=== PATIENT | female | born 1995 | race Caucasian/White ===

== ENCOUNTER 2024-02-01 08:50 | Observation (INO) | payer MEDICAID, SELFPAY ==
[2024-02-01] VITALS (10 sets, daily range): BP systolic 106–155; BP diastolic 63–111; PULSE 78–104; RESP 16–18; TEMP 36.7–36.9; O2SAT 93–99; BMI 25.7
--- NOTE | 2024-02-01 09:13 | PC.NURSE ---
ER AT BEDSIDE
--- NOTE | 2024-02-01 09:14 | HMH.EDGENADL ---
Discharge Plan Disposition Chief Complaint: Abdominal Pain Clinical Impressions Clinical Impression: , Abdominal pain, RLQ, Hematuria Print Language Print Language: Liberian Discharge ED Provider: Aj Polanco General Adult HPI General Chief complaint: Abdominal Pain Stated complaint: right abd pain Time Seen by Provider: 02/01/24 09:00 Mode of Arrival: Ambulatory Source of Information: Patient Limitations: No Limitations Description of Symptoms (Recalled from ER Triage Doc. by RN): pt presents to ED with c/o lower abdominal pain. located on the right side radiating from center of lower abdomen into her back. pt reports symptoms began this am approx 0530. pt reports pain constant , rating 9/10, feels stabbing in nature. History of Present Illness HPI narrative: Patient is 28-year-old female with no pertinent past medical history presents emergency department for evaluation of right lower quadrant abdominal pain. Onset was acute, since 530 this morning, no associated vomiting or cough, severe in intensity, nonmodifiable, no vaginal bleeding or discharge, her menstrual period is approximately 2 weeks late however has been irregular recently. No dysuria. No other acute complaints at this time. Related Data Allergies Allergy/AdvReac Type Severity Reaction Status Date / Time clindamycin Allergy Nausea Verified 02/01/24 09:09 [facility] Disclaimer: The information contained in this section may have been updated after the patient was seen, as this information can be updated by other users. Social History Smoking Status: Never smoker alcohol intake: never current occupational status: other Travel in the last 8 weeks: None ROS Obtained: Yes Systems reviewed as appropriate & no additional complaints except as documented Physical Exam General General appearance: alert and in distress Head Head exam: atraumatic and normocephalic Eye Eye exam: Present PERRL and EOMI ENT ENT exam: Present mucous membranes moist Neck Neck exam: Present normal inspection Chest Chest inspection: Present normal inspection and symmetric chest wall rise Respiratory Respiratory exam: Present normal lung sounds bilaterally; Absent respiratory distress Cardiovascular Cardiovascular exam: Present regular rate and normal rhythm Abdominal Exam Abdominal exam: Present soft, tenderness (Mild, right lower quadrant), guarding and other (Right-sided CVA tenderness) Extremities Exam Extremities exam: Present normal inspection Neurological Exam Neurological exam: Present alert Psychiatric Psychiatric exam: Present normal affect Skin Skin exam: Present warm and dry Medical Decision Making Medical Records Screening: Per USPSTF and CDC recommendations, given the prevalence of disease in our region, it is our hospital?s policy to screen for HIV and viral Hepatitis for all patients aged 18 and over and those with ongoing risk factors. Remy Inquiry Pt receiving controlled substance: No Vital Signs: 02/01/24 08:52 02/01/24 08:57 02/01/24 09:00 Temperature 98.5 F Temperature Source Oral Pulse Rate 103 H 104 H Pulse Rate [Left Radial] 101 H Respiratory Rate 16 Blood Pressure 155/100 H 106/86 L Blood Pressure [Right Arm] 106/86 L Blood Pressure Mean [Right Arm] 92 02 Sat by Pulse Oximetry 99 97 93 L Oxygen Delivery Method Room Air Room Air Room Air 02/01/24 09:06 02/01/24 09:30 02/01/24 10:00 Temperature Temperature Source Pulse Rate 78 91 H 87 Pulse Rate [Left Radial] Respiratory Rate Blood Pressure 116/82 133/63 111/75 Blood Pressure [Right Arm] Blood Pressure Mean [Right Arm] 02 Sat by Pulse Oximetry 98 98 97 Oxygen Delivery Method Room Air 02/01/24 10:27 02/01/24 11:31 Temperature Temperature Source Pulse Rate 84 97 H Pulse Rate [Left Radial] Respiratory Rate Blood Pressure 145/111 H 145/103 H Blood Pressure [Right Arm] Blood Pressure Mean [Right Arm] 02 Sat by Pulse Oximetry 98 96 Oxygen Delivery Method Room Air Lab Data Lab Results 02/01/24 08:55: Urine Color Yellow, Urine Appearance Clear, Urine pH 6.0, Ur Specific [place] >= 1.030, Urine Protein Negative, Urine Glucose (UA) Negative, Urine Ketones Negative, Urine Blood 2+ A, Urine Nitrate Negative, Urine Bilirubin Negative, Urine Urobilinogen 0.2, Ur Leukocyte Esterase Negative, Urine RBC 5-10, Urine WBC Occasional, Ur Squamous Epith Cells 5-10, Urine Bacteria Trace 02/01/24 09:00: WBC 11.6 H, RBC 4.77, Hgb 14.5, Hct 40.7, MCV 85.3, MCH 30.4, MCHC 35.6 H, RDW 13.9, Plt Count 355, MPV 7.8, Neut % (Auto) 65.7, Lymph % (Auto) 27.3, [place] % (Auto) 4.8, Eos % (Auto) 1.6, Baso % (Auto) 0.6, Neut # (Auto) 7.6, Lymph # (Auto) 3.2, [place] # (Auto) 0.6, Eos # (Auto) 0.2, Baso # (Auto) 0.1, Sodium 134 L, Potassium 3.9, Chloride 101, Carbon Dioxide 22, Anion Gap 14.9, BUN 10, Creatinine 0.60, Estimated Creat Clear 149, Estimated GFR 118, Est GFR ( Amer) 143, Glucose 102 H, Calcium 9.6, Total Bilirubin 0.7, AST 32, ALT 41, Alkaline Phosphatase 51, Total Protein 7.4, Albumin 4.4, Globulin 3.0, Albumin/Globulin Ratio 1.5, Lipase 97, Serum HCG, Qual Positive, HCG, Quant 24931 H, HIV 1&2 Antibody Rapid Nonreactive 02/01/24 09:00 02/01/24 09:00 Orders (Tests/Meds): ED MEDICATIONS Generic Name Dose Route Start Last Admin Trade Name Freq PRN Reason Stop Dose Admin Sodium Chloride 10 ml 02/01/24 09:10 Sodium Chloride 0.9% 10ml Flush Syringe IV 03/02/24 09:09 NEEDED PRN Maintain IV Site Discontinued Medications Generic Name Dose Route Start Last Admin Trade Name Freq PRN Reason Stop Dose Admin Acetaminophen 1,000 mg 02/01/24 09:11 02/01/24 09:15 Acetaminophen 1,000mg/100ml Vial IV 02/01/24 09:12 1,000 mg ONCE ONE Administration Lactated Ringer's 1,000 mls @ 999 mls/hr 02/01/24 09:11 02/01/24 09:16 Lactated Ringer's 1000 Ml Bag IV 02/01/24 10:11 999 mls/hr .Q1H1M ONE Administration Ketorolac Tromethamine 15 mg 02/01/24 09:11 02/01/24 09:37 Ketorolac 30mg/Ml Vial IV 02/01/24 09:12 Not Given ONCE ONE Morphine Sulfate 4 mg 02/01/24 09:11 02/01/24 09:16 Morphine 4mg/Ml Syringe IV 02/01/24 09:12 4 mg ONCE ONE Administration Morphine Sulfate 4 mg 02/01/24 11:40 02/01/24 11:47 Morphine 4mg/Ml Syringe IV 02/01/24 11:41 4 mg ONCE ONE Administration Ondansetron HCl 4 mg 02/01/24 09:11 02/01/24 09:15 Ondansetron 4mg/2ml Vial IV 02/01/24 09:12 4 mg ONCE ONE Administration ORDERS Category Date Time Status CBC w/Auto Diff [Complete Blood Count Auto Diff] Stat Lab 02/01/24 09:00 Completed CMP [Comprehensive Metabolic Panel] Stat Lab 02/01/24 09:00 Completed HCG Qualitative, Serum Stat Lab 02/01/24 09:00 Completed HCG,Quantitative Stat Lab 02/01/24 09:00 Completed HIV (1&2) Antibody Rapid Routine Lab 02/01/24 09:00 Completed Hep C Ab with Reflex to RNA Stat Lab 02/01/24 09:00 Completed Lipase Stat Lab 02/01/24 09:00 Completed UA [Urinalysis and Microscopic] Stat Lab 02/01/24 08:55 Completed US OB >= 14 weeks Fetus Stat Ultrasound 02/01/24 10:16 Taken Medical Decision Narrative: In summary patient is 28-year-old female past medical history described above presents emergency department for evaluation of severe abdominal pain. Patient is hemodynamically stable and appearing in significant pain upon arrival, afebrile. Differential diagnosis includes appendicitis, ureterolithiasis, ectopic , among others. Workup will be conducted with hematologic labs, urinalysis, CT abdomen pelvis IV contrast. Initial inventions include crystalloid bolus, IV pain medications, Zofran. Initial workup reviewed by me, leukocytosis 11.6, sodium 134, urinalysis has hematuria without evidence of infection interpreted by me. Transvaginal ultrasound largely unable to evaluate ovaries, there is viable intrauterine gestation. Current differential includes ovarian pathology, appendicitis, ureterolithiasis. In the event of ureterolithiasis with hematuria without infection without NANCY expectant management is warranted at this time. However to rule out the others patient will likely require MRI. Initial workup reviewed by me, leukocytosis of 11.6, no NANCY or critical electrolyte abnormality, quant hCG 67,000, urinalysis interpreted by me, there is hematuria, it is not consistent with infection. Upon repeat evaluation patient had persistent pain in her right lower quadrant. Given that appendicitis is on the differential patient will benefit from MRI at this point. Dr. Rutledge and I discussed the case regarding management and he agrees. Patient will be admitted to his service for continued diagnostic evaluation at this time. Critical Care Critical Care Time Critical Care Time: No
[2024-02-01] MEDS: ACETAMINOPHEN 1,000MG/100ML VIAL 1000 MG IV (09:15)
[2024-02-01] MEDS: ONDANSETRON 4MG/2ML VIAL 4 MG IV (09:15)
[2024-02-01] MEDS: LACTATED RINGERS 1000ML 1,000 ML 999 ML IV (09:16)
[2024-02-01] MEDS: MORPHINE 4MG/ML SYRINGE 4 MG IV ×2 (09:16→11:47)
[2024-02-01 09:21] LABS: Basophils # 0.1 K/mm3 (0-0.2); Basophils % 0.6 % (0.1-2.0); Eosinophils # 0.2 K/mm3 (0.0-0.4); Eosinophils % 1.6 % (0.1-12.0); Hematocrit 40.7 % (37.0-47.0); Hemoglobin 14.5 g/dL (12.2-16.2); Lymphocytes # 3.2 K/mm3 (0.7-4.5); Lymphocytes % 27.3 % (10-50); Mean Corpuscular HGB Conc 35.6 g/dL (31.8-35.4); Mean Corpuscular Hemoglobin 30.4 pg (27.0-31.2); Mean Corpuscular Volume 85.3 fl (81-99); Mean Platelet Volume 7.8 fl (7.4-10.4); Monocytes # 0.6 K/mm3 (0.1-1.0); Monocytes % 4.8 % (1.7-9.3); Neutrophils # 7.6 K/mm3 (1.8-7.8); Neutrophils % 65.7 % (37.0-80.0); Platelet Count 355 K/mm3 (142-424); Red Blood Count 4.77 M/mm3 (4.20-5.40); Red Cell Distribution Width 13.9 % (11.5-17.5); White Blood Count 11.6 K/mm3 (4.8-10.8)
[2024-02-01 09:22] LABS: Albumin Level 4.4 g/dl (3.5-5.0); Chloride 101 mmol/L (98-107); Potassium 3.9 mmoL/L (3.5-5.1); Sodium 134 mmol/L (136-145)
[2024-02-01 09:25] LABS: Alanine Aminotransferase 41 U/L (12-78); Albumin/Globulin Ratio 1.5 (1.1-1.8); Alkaline Phosphatase 51 U/L (38-126); Anion Gap 14.9 mEq/L (5-15); Aspartate Amino Transferase 32 U/L (14-36); Bilirubin,Total 0.7 mg/dl (0.2-1.3); Blood Urea Nitrogen 10 mg/dl (7-17); Carbon Dioxide 22 mmol/L (22.0-30.0); Creatinine Clearance Estimated 149 mL/min (50-200); Estimated Glomerular Filt Rate 118 ml/min (>60); GFR (African American) 143 ML/MIN (>60); Total Protein,Serum 7.4 g/dl (6.3-8.2)
[2024-02-01 09:26] LABS: Calcium 9.6 mg/dl (8.4-10.2); Glucose 102 mg/dl (74-100); Lipase 97 U/L (23-300)
[2024-02-01 09:36] LABS: HCG Qualitative, Serum Positive (Negative)
[2024-02-01 09:36] LABS: Microscopic, Urine URINE MICROSCOPIC (MICROSCOPIC)
[2024-02-01 09:40] LABS: Appearance,Urine CLEAR (Clear); Bilirubin,Urine Negative (Negative); Blood, Urine 2+ (Negative); Color,Urine YELLOW (Yellow); Glucose,Urine (UA) Negative (Negative); Ketones,Urine Negative (Negative); Leukocyte Esterase,Urine Negative (Negative); Nitrate,Urine Negative (Negative); Protein,Urine Negative (Negative); Specific Gravity, Urine >= 1.030 (1.005-1.030); Urobilinogen,Urine 0.2 EU/dl (0.2)
[2024-02-01 09:54] LABS: Bacteria,Urine Trace /lpf; WBC,Urine Occasional #/hpf (0-3)
--- NOTE | 2024-02-01 10:16 | US_ITS ---
PROCEDURE: US OB >= 14 WEEKS FETUS CLINICAL INDICATION: RLQ pain severe COMPARISON: No exams were available for comparison FINDINGS: Transabdominal sonographic images of the uterus were obtained. From her last menstrual period she is 7weeks 4days. The following parameters are obtained: Viable Fetus in the breech presentation with an anterior placenta grade 0. Average ultrasound age is 14weeks 6days, ERICA 07/26/2024 Estimated weight 102g Amniotic fluid: MVP 3.01 cm. Measurements: heart Rate = 147bpm BPD = 14weeks 5days HC = 14weeks 6days AC = 14weeks 6days FL = 14weeks 3days HC/AC is 1.21 FL/BPD is 0.56 FL/AC is 0.18 No obvious anomalies evident.Profile, cord insertion, appears normal. There is an image of the patient's right kidney that does not show any renal pelvis dilation according to the log chain feeder. Image of the patient's gallbladder does not show any wall thickening or stones according to the log chain feeder. IMPRESSION: 1. Viable fetus within the uterine cavity in the breech presentation with an anterior placenta grade 0. 2. The fluid is within normal limits around the fetus. MVP 3.01 cm. 3. Fetus measures 14 weeks 6 days and her ERICA will be 07/26/2024. 4. Adnexa were not well visualized secondary to maternal body habitus. 5. The findings were discussed with Dr. Polanco at in the emergency department. Dictated by: Dominguez Rutledge MD 02/01/2024 12:31 Dominguez Rutledge MD in [facility] 02/01/2024 12:32
--- NOTE | 2024-02-01 10:17 | PC.NURSE ---
ER AT BEDSIDE
--- NOTE | 2024-02-01 10:27 | PC.NURSE ---
pt to US via wheelchair
[2024-02-01 11:13] LABS: HIV (1&2) Antibody Rapid NONREACTIVE (NONREACTIVE)
[2024-02-01 11:19] LABS: HCG,Quantitative 67523 mIU/ml (0-5.42)
--- NOTE | 2024-02-01 11:50 | PC.NURSE ---
call made to warehouse selector for bed placement
--- NOTE | 2024-02-01 11:53 | MR_ITS ---
FINAL REPORT CLINICAL HISTORY: RLQ/R flank pain preg COMPARISON: None FINDINGS: Multiplanar MR imaging of the abdomen was performed without contrast. MRCP was also performed and 3D images were obtained and reviewed. Images are markedly degraded by patient motion and are marginally interpretable. The liver is homogeneous. The gallbladder is present. No definite signal abnormality is identified within the gallbladder. The spleen, pancreas, and adrenals are unremarkable. There is mild right hydronephrosis. On MRCP images, there is no localized signal abnormality within the common duct. There is no evidence of choledocholithiasis. No gallstones are seen. There is no evidence of localized inflammation. IMPRESSION: No gallstones, choledocholithiasis, or localized inflammatory reaction. Mild right hydronephrosis. Complicated exam due to patient motion. Reviewed, Interpreted and Dictated by Bonilla Gibson MD Transcribed by Yue Parra Authenticated and [facility]
--- NOTE | 2024-02-01 11:53 | MR_ITS ---
FINAL REPORT CLINICAL HISTORY: RLQ abdominal pain PATIENT IS 14 WEEKS PREG. SEVERE RIGHT FLANK TO RLQ PAIN COMPARISON: None FINDINGS: Multiplanar MR images of the pelvis were performed without contrast. An intrauterine is present in the breech position. There is no evidence of right lower quadrant inflammatory reaction. No abnormal fluid collections are identified. There is mild asymmetric distention of the right renal collecting system and right ureter. A definite obstructing stone is not seen. IMPRESSION: Mild right hydronephrosis and hydroureter. Findings are favored to be related to extrinsic compression from the uterus. No definite stone identified. Reviewed, Interpreted and Dictated by Bonilla Gibson MD Transcribed by Yue Parra Authenticated and [facility]
--- NOTE | 2024-02-01 12:02 | PC.NURSE ---
pt to MRI via wheelchair
--- NOTE | 2024-02-01 12:09 | PC.NURSE ---
report called to OB Jo elliott.
[2024-02-01] MEDS: HYDROMORPHONE 2MG/ML SYRINGE 1 MG IV (12:52)
[2024-02-01 13:01] LABS: Barbiturates Screen,Urine Negative ng/ml (<200)
[2024-02-01 13:02] LABS: Benzodiazepines Screen,Urine Negative ng/ml (<200)
[2024-02-01 13:03] LABS: Amphetamine/Metha Screen,Urine Negative ng/ml (<1000); Cannabinoid Screen,Urine Negative ng/ml (<50)
[2024-02-01 13:04] LABS: Cocaine Screen,Urine Negative ng/ml (<300); Methadone Screen,Urine Negative ng/ml (<300)
[2024-02-01 13:05] LABS: Opiate Screen,Urine Negative ng/ml (<300)
[2024-02-01 13:06] LABS: Phencyclidine Screen,Urine Negative ng/ml (<25)
[2024-02-01] MEDS: ACETAMINOPHEN 325MG TAB 650 MG PO (15:49)
[2024-02-01] MEDS: LACTATED RINGERS 1000ML 1,000 ML 75 ML IV (15:50)
--- NOTE | 2024-02-01 18:00 | P.HPDS_ITS ---
General Admission date:: 02/01/24 Discharge date: 02/01/24 *Admission Date: 02/01/24 *Chief complaint: Right lower quadrant pain, renal colic, *History of present illness: Patient is 28-year-old female with no pertinent past medical history presents emergency department for evaluation of right lower quadrant abdominal pain. Onset was acute, since 530 this morning, no associated vomiting or cough, severe in intensity, nonmodifiable, no vaginal bleeding or discharge, her menstrual period is approximately 2 weeks late however has been irregular recently. No dysuria. No other acute complaints at this time. She had an ultrasound that showed a 14-week viable fetus. She did not know she was . MRI was also performed and showed some mild right hydronephrosis and right hydroureter. Her pain was severe when she went for her MRI and she required 1 mg of Dilaudid to ease the pain. While hospitalized she did pass a small stone and her pain is mostly now resolved. As result of that we have offered her to go home and she would like to do this. She will continue with Tylenol at home. She is discharged home to follow-up with our office in approximately a week's time. She will continue with her vitamins. She will return if she has any further episodes of severe pain. Her condition on discharge is stable and improved. [facility] Disclaimer: The information contained in this section may have been updated after the patient was seen, as this information can be updated by other users. Medical History History of gastroesophageal reflux (GERD) Migraine Normal endoscopy Family History Family history of cancer Family history of myocardial infarction Social History Smoking Status: Never smoker alcohol intake: never current occupational status: unemployed Travel in the last 8 weeks: None Other Medical History Have you received the Flu Vaccine for this season: No Have you received the Pneumonia Vaccine: No Review of Systems Review of Systems Review of systems:: pertinent systems reviewed and negative unless documented below Exam Data for Last 24 hours Vital signs and Labs for Last 24 Hours: Temp Pulse Resp BP Pulse Ox O2 Del Method 98.2 F 96 H 18 131/70 95 Room Air 02/01/24 14:51 02/01/24 14:51 02/01/24 14:51 02/01/24 14:51 02/01/24 14:51 02/01/24 14:51 Laboratory Results - last 24 hr 02/01/24 08:55: Urine Color Yellow, Urine Appearance Clear, Urine pH 6.0, Ur Specific [place] >= 1.030, Urine Protein Negative, Urine Glucose (UA) Negative, Urine Ketones Negative, Urine Blood 2+ A, Urine Nitrate Negative, Urine Bilirubin Negative, Urine Urobilinogen 0.2, Ur Leukocyte Esterase Negative, Urine RBC 5-10, Urine WBC Occasional, Ur Squamous Epith Cells 5-10, Urine Bacteria Trace, Urine Opiates Screen Negative, Urine Methadone Screen Negative, Ur Barbituates Screen Negative, Ur Phencyclidine Scrn Negative, Ur Amphetamines Screen Negative, U Benzodiazepines Scrn Negative, Urine Cocaine Screen Negative, U Marijuana (THC) Screen Negative 02/01/24 09:00: WBC 11.6 H, RBC 4.77, Hgb 14.5, Hct 40.7, MCV 85.3, MCH 30.4, MCHC 35.6 H, RDW 13.9, Plt Count 355, MPV 7.8, Neut % (Auto) 65.7, Lymph % (Auto) 27.3, [place] % (Auto) 4.8, Eos % (Auto) 1.6, Baso % (Auto) 0.6, Neut # (Auto) 7.6, Lymph # (Auto) 3.2, [place] # (Auto) 0.6, Eos # (Auto) 0.2, Baso # (Auto) 0.1, Sodium 134 L, Potassium 3.9, Chloride 101, Carbon Dioxide 22, Anion Gap 14.9, BUN 10, Creatinine 0.60, Estimated Creat Clear 149, Estimated GFR 118, Est GFR ( Amer) 143, Glucose 102 H, Calcium 9.6, Total Bilirubin 0.7, AST 32, ALT 41, Alkaline Phosphatase 51, Total Protein 7.4, Albumin 4.4, Globulin 3.0, Albumin/Globulin Ratio 1.5, Lipase 97, Serum HCG, Qual Positive, HCG, Quant 04593 H, HIV 1&2 Antibody Rapid Nonreactive I & O for Last 24 hours: Intake & Output 01/30/24 01/31/24 02/01/24 10/03/24 11:59 11:59 11:59 11:59 Weight 150 lb 150 lb Constitutional Constitutional: no acute distress *Routine HEENT Exam Head: Present normocephalic Eye: Present EOMI and PERRL ENT: Present mucous membranes moist *Routine Neck Exam Neck: Present supple; Absent lymphadenopathy *Routine Respiratory Exam Respiratory: Present CTA bilaterally *Routine Cardiovascular Exam Cardiovascular: Present RRR *Routine Abdominal Exam Abdominal: Present soft and normoactive bowel sounds; Absent tenderness *Routine Rectal Exam Rectal:: deferred *Routine Genitalia Exam Genitalia:: deferred *Routine Extremities Exam Extremities: Absent cyanosis, clubbing or edema *Routine Skin Exam Skin: Present warm; Absent rash *Routine Neurological Exam Neurological: Present alert and oriented X3 Meds Home Medications and Allergies New Prescriptions to Start Prescriptions: Allergies Allergy/AdvReac Type Severity Reaction Status Date / Time clindamycin Allergy Nausea Verified 02/01/24 09:09 Hospital Course Hospital Course Hospital Course: She was admitted to labor and delivery and received IV Dilaudid for severe pain. She had an MRI that showed mild hydroureter as well as hydronephrosis thought to be related. Late in the afternoon she passed a small stone. She is feeling much better after this. She says her pain is now a 2 out of 10. She just feels achy she says. Ultrasound had confirmed that she had a viable intrauterine gestation at approximately 14 weeks gestational age. She will be discharged home to follow-up with our office in approximately 2 weeks time. She will return if she has any further episodes of renal colic. She will take vitamins. She will take Tylenol for any mild discomfort. Her condition on discharge is stable and improved. Results Data Completed and Pending Labs on day of discharge: Labs from last 24 hours 02/01/24 02/01/24 09:00 08:55 WBC 11.6 H RBC 4.77 Hgb 14.5 Hct 40.7 MCV 85.3 MCH 30.4 MCHC 35.6 H RDW 13.9 Plt Count 355 MPV 7.8 Neut % (Auto) 65.7 Lymph % (Auto) 27.3 [place] % (Auto) 4.8 Eos % (Auto) 1.6 Baso % (Auto) 0.6 Neut # (Auto) 7.6 Lymph # (Auto) 3.2 [place] # (Auto) 0.6 Eos # (Auto) 0.2 Baso # (Auto) 0.1 Sodium 134 L Potassium 3.9 Chloride 101 Carbon Dioxide 22 Anion Gap 14.9 BUN 10 Creatinine 0.60 Estimated Creat Clear 149 Estimated GFR 118 Est GFR ( Amer) 143 Glucose 102 H Calcium 9.6 Total Bilirubin 0.7 AST 32 ALT 41 Alkaline Phosphatase 51 Total Protein 7.4 Albumin 4.4 Globulin 3.0 Albumin/Globulin Ratio 1.5 Lipase 97 Serum HCG, Qual Positive HCG, Quant 11751 H Urine Color Yellow Urine Appearance Clear Urine pH 6.0 Ur Specific [place] >= 1.030 Urine Protein Negative Urine Glucose (UA) Negative Urine Ketones Negative Urine Blood 2+ A Urine Nitrate Negative Urine Bilirubin Negative Urine Urobilinogen 0.2 Ur Leukocyte Esterase Negative Urine RBC 5-10 Urine WBC Occasional Ur Squamous Epith Cells 5-10 Urine Bacteria Trace Urine Opiates Screen Negative Urine Methadone Screen Negative Ur Barbituates Screen Negative Ur Phencyclidine Scrn Negative Ur Amphetamines Screen Negative U Benzodiazepines Scrn Negative Urine Cocaine Screen Negative U Marijuana (THC) Screen Negative HIV 1&2 Antibody Rapid Nonreactive DS: Diagnosis Discharge Diagnosis (1) Hematuria: Status: Acute Code(s): R31.9 - Hematuria, unspecified Qualifiers: Hematuria type: other microscopic Qualified Code(s): R31.29 - Other microscopic hematuria (2) Abdominal pain, RLQ: Status: Acute Code(s): R10.31 - Right lower quadrant pain (3) : Status: Acute Code(s): Z34.90 - Encounter for supervision of normal , unspecified, unspecified trimester Qualifiers: Weeks of gestation: 14 weeks Qualified Code(s): Z3A.14 - 14 weeks gestation of (4) Renal colic on right side: Status: Acute Code(s): N23 - Unspecified renal colic Discharge Plan Disposition Patient Disposition: Home, Self-Care Condition: Fair Problem Reconciliation Problems Reviewed?: Yes Patient Discharge Instructions ACTIVITY: Continue current activity DIET: continue same diet Print Language: [place]an Providers Primary Care Provider: Provider,Referral Admit Provider: Dominguez Rutledge Attending Provider: Dominguez Rutledge
[2024-02-02 05:22] LABS: HCV Ab Non Reactive (Non Reactive)
== END 2024-02-01 18:45 | disposition home or self-care (01) ==
LOC: ER 09:53 → OB 11:56
PROVIDERS: Admitting Provider Nurse Practitioner Obstetrics & Gynecology; Emergency Provider Emergency Medicine; Visit Provider Nurse Practitioner Obstetrics & Gynecology
DX: R10.31 Right lower quadrant pain (principal); R31.9 Hematuria, unspecified; N13.4 Hydroureter; O99.891 Other specified diseases and conditions complicating pregnancy; N13.30 Unspecified hydronephrosis; Z3A.14 14 weeks gestation of pregnancy
CPT/HCPCS: 72195; 74181; 76805; 80053; 80307; 81001; 83690; 84702; 84703; 85025; 86803; 87389; 99285; G0378; J0131; J1171; J2270; J2405; J7120

== ENCOUNTER 2024-02-17 17:01 | Outpatient (CLI) | payer MEDICAID, SELFPAY | END 2024-02-17 23:59 | disposition home or self-care (01) | LOC: LAB.DROPOF 17:01 | PROVIDERS: PCP Obstetrics & Gynecology; Visit Provider Obstetrics & Gynecology | DX: Z34.90 Encounter for supervision of normal pregnancy, unspecified, unspecified trimester (principal) | CPT/HCPCS: 87086 ==

== ENCOUNTER 2024-03-09 12:31 | Outpatient (CLI) | payer MEDICAID, SELFPAY ==
--- NOTE | 2024-03-09 12:32 | US_ITS ---
PROCEDURE: US OB /MATERNAL DETAIL CLINICAL INDICATION: 20 week Anatomy Scan-US OB Complete COMPARISON: US US OB >= 14 WEEKS FETUS from 02/01/2024 FINDINGS: Transabdominal sonographic images of the pelvis were obtained. From her established due date she is 20 weeks 1 day. Single viable intrauterine gestation. Cephalic position. Placenta: Anteriorplacenta grade 1. There are several placental lakes. There is an average amount of fluid. The cervix appears satisfactory. Closed and measuring 2.54 cm in length. Complete survey performed and was unremarkable on the submitted images as in PACS. No discrete anomalies identified on survey imaging by technologist. Active fetus. Three-vessel cord with satisfactory umbilical cord insertion. 4- chamber heart noted. [place], aortic arch, LVOT, RVOT, three-vessel view appear normal. Survey of brain & ventricles Unremarkable. Cerebellum, thalamus, choroid plexus, cisterna magna appear normal. Face and neck survey unremarkable. Profile, nasion, lips and nose appeared normal. Diaphragm and chest views unremarkable. Abdomen: Both kidneys noted and unremarkable. Stomach and bladder noted and satisfactory. Spine: Survey of the spine satisfactory with no anomalies identified nor imaged. Cervical, thoracic, lower spine appear normal. Both arms and legs noted. Amniotic Fluid: Adequate. MVP 6.55 cm Measurements: Average ultrasound age 20weeks 5days. Estimated due date by ultrasound age 0307/22/2024. Estimated weight 397g BPD = 20weeks 1day HC = 20weeks 0 days AC = 21weeks 0 days FL = 21weeks 5days Growth Percentile= 90 Heart Rate = 156bpm Cerebellum = 20weeks 0 days Humerus = 20weeks 5days HC/AC is 1.1 FL/BPD is 0.78 FL/AC is 0.23 IMPRESSION: 1. Viable fetus in the cephalic presentation with an anterior placenta grade 1. There are several placental lakes. 2. The fluid is within normal limits MVP 6.55 cm. 3. Anatomical scan appears normal. 4. Cardiac views appear normal but were limited due to the position. Suggest repeat scan in 2-3 weeks. 5. biometry is consistent with the dates. Dictated by: Dominguez Rutledge MD 03/10/2024 10:32 Dominguez Rutledge MD in [facility] 03/10/2024 10:32
[2024-03-09 13:17] LABS: Basophils # 0.1 K/mm3 (0-0.2); Basophils % 0.6 % (0.1-2.0); Eosinophils # 0.2 K/mm3 (0.0-0.4); Eosinophils % 1.5 % (0.1-12.0); Hematocrit 37.9 % (37.0-47.0); Hemoglobin 13.7 g/dL (12.2-16.2); Lymphocytes % 22.2 % (10-50); Mean Corpuscular HGB Conc 36.3 g/dL (31.8-35.4); Mean Corpuscular Hemoglobin 30.7 pg (27.0-31.2); Mean Corpuscular Volume 84.8 fl (81-99); Monocytes # 0.5 K/mm3 (0.1-1.0); Monocytes % 3.8 % (1.7-9.3); Neutrophils # 9.6 K/mm3 (1.8-7.8); Neutrophils % 71.8 % (37.0-80.0); Platelet Count 354 K/mm3 (142-424); Red Blood Count 4.47 M/mm3 (4.20-5.40); Red Cell Distribution Width 14.5 % (11.5-17.5); White Blood Count 13.4 K/mm3 (4.8-10.8)
[2024-03-10 08:22] LABS: Hepatitis B Surface Antigen Negative (Negative); Rubella Antibodies, IgG 2.04 index (Immune >0.99)
[2024-03-10 10:24] LABS: Rapid Plasma Reagin Ab Titer Non Reactive titer (NonRea<1:1)
== END 2024-03-09 23:59 | disposition home or self-care (01) ==
LOC: RAD 12:32
PROVIDERS: PCP Obstetrics & Gynecology; Visit Provider Obstetrics & Gynecology
DX: R10.31 Right lower quadrant pain (principal); Z3A.20 20 weeks gestation of pregnancy; Z36.3 Encounter for antenatal screening for malformations; Z34.90 Encounter for supervision of normal pregnancy, unspecified, unspecified trimester
CPT/HCPCS: 36415; 76811; 85025; 86593; 86762; 86850; 87340

== ENCOUNTER 2024-03-23 09:58 | Outpatient (CLI) | payer MEDICAID, SELFPAY ==
--- NOTE | 2024-03-23 09:58 | US_ITS ---
PROCEDURE: US OB FOLLOW UP CLINICAL INDICATION: Cardiac views limited due to baby position COMPARISON: US US OB /MATERNAL DETAIL from 03/09/2024 FINDINGS: Transabdominal sonographic images of the pelvis were obtained. The following parameters are obtained: From her established due date she is 22weeks 1day Viable fetus in the cephalic presentation with an anterior placenta grade 1. There are placental lakes seen. The cervix measures 2.88 cm. heart rate: 149bpm bpm. Amniotic fluid: Appears normal No obvious anomalies evident. profile seen, stomach, bladder, kidneys, three-vessel cord, four chamber heart appear normal. Cardiac views: Four-chamber view, LVOT, RVOT, three-vessel view appear normal today. IMPRESSION: 1. Viable fetus in the cephalic presentation with an anterior placenta grade 1. There are several small placental lakes. 2. The fluid is not measured but subjectively appears within normal limits. 3. Limited anatomical scan appears normal. 4. Cardiac scan appears normal. Dictated by: Dominguez Rutledge MD 03/24/2024 07:56 Dominguez Rutledge MD in [facility] 03/24/2024 07:56
== END 2024-03-23 23:59 | disposition home or self-care (01) ==
LOC: RAD 09:58
PROVIDERS: PCP Obstetrics & Gynecology; Visit Provider Obstetrics & Gynecology
DX: Z36.2 Encounter for other antenatal screening follow-up (principal); Z3A.22 22 weeks gestation of pregnancy
CPT/HCPCS: 76816

== ENCOUNTER 2024-05-01 12:16 | Outpatient (CLI) | payer MEDICAID, SELFPAY ==
--- NOTE | 2024-05-01 12:33 | US_ITS ---
PROCEDURE: US OB FOLLOW UP CLINICAL INDICATION: TV for cervical length COMPARISON: US US OB /MATERNAL DETAIL from 03/09/2024 US US OB FOLLOW UP from 03/23/2024 FINDINGS: Transabdominal sonographic images of the pelvis were obtained. The following parameters are obtained: From her established due date she is 28weeks 0 days Viable fetus in the cephalic presentation with an anterior placenta grade 2. The cervix measures 3.22 cm transabdominally Transvaginally the cervix measures 2.21-2.68 cm. There is no funneling. heart rate: 144bpm bpm. BPD: 28weeks 6days, 63 percentile HC: 28weeks 5days, 39 percentile AC: 29weeks 4days, 85 percentile FL: 29weeks 3days, 86 percentile HC/AC: 1.04 FL/BPD: 0.78 FL/AC: 0.22 Growth percentile: 86 Amniotic fluid index: 19.02cm, MVP 6.73 cm No obvious anomalies evident. profile seen, stomach, bladder, kidneys, three-vessel cord appear normal. IMPRESSION: 1. Viable fetus in the cephalic presentation with an anterior placenta grade 2. 2. The fluid is within normal limits with an amniotic fluid index 19.02 cm, MVP 6.73 cm. 3. There has been good interval growth with the fetus currently 86th percentile. 4. Cervix is measured transabdominally and transvaginally and measures 2.21-2.68 cm transvaginally and 3.22 cm transabdominally. 5. Limited anatomical scan appears normal. Dictated by: Dominguez Rutledge MD 05/02/2024 12:20 Dominguez Rutledge MD in [place] 05/02/2024 12:20
[2024-05-01 12:59] LABS: Basophils # 0.1 K/mm3 (0-0.2); Basophils % 0.5 % (0.1-2.0); Eosinophils # 0.2 K/mm3 (0.0-0.4); Eosinophils % 1.4 % (0.1-12.0); Hematocrit 35.4 % (37.0-47.0); Hemoglobin 12.5 g/dL (12.2-16.2); Lymphocytes # 1.9 K/mm3 (0.7-4.5); Lymphocytes % 14.9 % (10-50); Mean Corpuscular HGB Conc 35.3 g/dL (31.8-35.4); Mean Corpuscular Volume 85.1 fl (81-99); Monocytes # 0.8 K/mm3 (0.1-1.0); Monocytes % 6.1 % (1.7-9.3); Neutrophils # 9.8 K/mm3 (1.8-7.8); Neutrophils % 75.9 % (37.0-80.0); Platelet Count 315 K/mm3 (142-424); Red Blood Count 4.16 M/mm3 (4.20-5.40); Red Cell Distribution Width 13.2 % (11.5-17.5)
[2024-05-01 13:11] LABS: Glucose,Fasting 87 mg/dl (74-100)
[2024-05-01 13:56] LABS: Glucose 1 Hour 159 mg/dL (74-100)
== END 2024-05-01 23:59 | disposition home or self-care (01) ==
LOC: RAD 12:17
PROVIDERS: Visit Provider Obstetrics & Gynecology
DX: O26.872 Cervical shortening, second trimester (principal); Z3A.14 14 weeks gestation of pregnancy
CPT/HCPCS: 36415; 76816; 82951; 85025

== ENCOUNTER 2024-05-03 09:03 | Outpatient (CLI) | payer MEDICAID, SELFPAY ==
[2024-05-03 09:41] LABS: Glucose,Fasting 87 mg/dl (74-100)
[2024-05-03 11:37] LABS: Glucose 1 Hour 163 mg/dL (74-100)
[2024-05-03 11:55] LABS: Glucose 2 Hour 156 mg/dL (74-100)
[2024-05-03 12:49] LABS: Glucose 3 Hour 127 mg/dL (74-100)
== END 2024-05-03 23:59 | disposition home or self-care (01) ==
LOC: LAB 09:04
PROVIDERS: Visit Provider Obstetrics & Gynecology
DX: E74.39 Other disorders of intestinal carbohydrate absorption (principal)
CPT/HCPCS: 36415; 82951

== ENCOUNTER 2024-05-08 16:38 | Inpatient (IN) | payer MEDICAID, SELFPAY ==
[2024-05-08 14:26] VITALS: BMI 33.6
--- NOTE | 2024-05-08 14:36 | US_ITS ---
PROCEDURE: US OB TRANSVAGINAL CLINICAL INDICATION: vaginal bleeding COMPARISON: US US OB /MATERNAL DETAIL from 03/09/2024 US US OB FOLLOW UP from 03/23/2024 US US OB FOLLOW UP from 05/01/2024 US US OB FOLLOW UP from 05/08/2024 FINDINGS: Transvaginal sonographic images of the pelvis were obtained. From her last menstrual period she is 29weeks 0 days. Transvaginal images of the cervix were obtained. The fetus is in the cephalic presentation. The cervix measures 1.67-2.24 cm transvaginally. There is no funneling noted.. IMPRESSION: 1. Transvaginal images of the cervix were obtained. 2. The cervix measures 1.67-2.24 cm transvaginally. 3. head is seen in the cephalic presentation. Dictated by: Dominguez Rutledge MD 05/08/2024 16:39 Dominguez Rutledge MD in [facility] 05/08/2024 16:40
--- NOTE | 2024-05-08 14:36 | US_ITS ---
PROCEDURE: US OB FOLLOW UP CLINICAL INDICATION: vaginal bleeding COMPARISON: US US OB /MATERNAL DETAIL from 03/09/2024 US US OB FOLLOW UP from 03/23/2024 US US OB FOLLOW UP from 05/01/2024 US US OB TRANSVAGINAL from 05/08/2024 FINDINGS: Transabdominal and transvaginal sonographic images of the pelvis were obtained. The following parameters are obtained: From her established due date she is 29weeks 0 days Viable fetus in the cephalic presentation with an anterior placenta grade 1. There is an area of fluid under the anterior aspect of the placenta at the lower edge. It measures 3.96 cm x 0.4 cm. This was seen at an ultrasound done at 22 weeks. It may just be a placental Hair and less likely an abruption. The cervix measures 1.51 cm-1.91 cm when measured transvaginally. heart rate: 147bpm bpm. Amniotic fluid index: 11.86cm, MVP 4.24 cm No obvious anomalies evident. profile seen, nasion, stomach, bladder, kidneys, three-vessel cord, four chamber heart appear normal. IMPRESSION: 1. Viable fetus in the cephalic presentation with an anterior placenta grade 1. 2. The fluid is within normal limits with an amniotic fluid index 11.86 cm, MVP 4.24 cm. 3. There is a small fluid collection under the placenta at the lower edge that measures 3.96 cm x 0.4 cm. This was seen at her ultrasound done at 22 weeks. 4. Her cervix is shortened and measures between 1.51 cm and 1.91 cm when measured transvaginally. 5. Fetus is active. 6. Limited anatomic scan appears normal. 7. Discussed with Dr. Forrester. Dictated by: Dominguez Rutledge MD 05/08/2024 16:36 Dominguez Rutledge MD in [place] 05/08/2024 16:39
[2024-05-08 14:41] VITALS: BP 129/71; PULSE 108; RESP 18; TEMP 37.1; O2SAT 96; BMI 33.6
--- NOTE | 2024-05-08 16:23 | P.HP_ITS ---
History of Present Illness *Admission Date: 05/08/24 *Reason for visit:: Vaginal bleeding *History of present illness: Hyun Murillo is a 29-year-old at 29 weeks and 0 days gestation who presented to labor and delivery with vaginal bleeding. This has been complicated by a short cervix. States the vaginal bleeding has been on and off throughout the weekend. She has not had any bleeding today. States that it is dark brown mostly. It was bright red after placing her progesterone capsule. She uses vaginal progesterone for a shortened cervix noted on an earlier ultrasound. She denies any contractions and endorses good movement. Denies any leakage of fluid I called and discussed her case with [facility], maternal- medicine Dr. Melissa Cormier. We discussed the possibility of an abruption. Discussed that clinically she was very stable in the infant's heart rate tracing was very reassuring. Discussed expected management of abruption. Dr. Cormier graciously accepted the patient's transfer. The patient declined transfer at this time. Discussed that there was no NICU care available to her at [facility]. Discussed the transfer of the infant should she deliver at 29 weeks. [facility] Disclaimer: The information contained in this section may have been updated after the patient was seen, as this information can be updated by other users. Medical History History of gastroesophageal reflux (GERD) Migraine Normal endoscopy Surgical History Hx of wisdom tooth extraction Family History Other Family history of cancer Family history of myocardial infarction Social History (Updated 05/09/24 @ 02:12 by Shaista Putnam RN) Smoking Status: Never smoker alcohol intake: never current occupational status: unemployed Travel in the last 8 weeks: None Other Medical History Have you received the Flu Vaccine for this season: No Have you received the Pneumonia Vaccine: No Review of Systems Review of Systems Review of systems (narrative): Review of Systems Constitutional: Denies fever, chills, and sweats Eyes: Denies vision change/ pain Respiratory: Denies cough and shortness of breath Cardiovascular: Denies chest pain and lightheadedness Gastrointestinal: Denies abdominal pain. Denies nausea, vomiting. Genitourinary: Denies dysuria and incontinence. Endorses vaginal bleeding Musculoskeletal: Denies shoulder pain and back pain Neurological: Denies change in speech or headaches Meds Home Medications and Allergies Home Medications ?Medication ?Instructions ?Recorded ?Confirmed ?Type acetaminophen 500 mg capsule 500 mg PO Q6HP PRN Mild Pain 02/17/24 05/09/24 History (Scale Score 1-4) vits no.126-ferrous fum 1 tab PO DAILY 02/17/24 05/09/24 History 28 mg iron-folic acid 800 mcg tablet (Classic ) progesterone micronized 100 mg 200 mg (2 x 100 mg) vaginal DAILY 04/04/24 05/09/24 Rx capsule (Prometrium) 30 days #60 caps New Prescriptions to Start Prescriptions: Allergies Allergy/AdvReac Type Severity Reaction Status Date / Time clindamycin Allergy Nausea Verified 05/03/24 14:00 benzol peroxide Allergy Mild Hives Uncoded 05/03/24 14:00 Exam Data for Last 24 hours Vital signs and Labs for Last 24 Hours: Temp Pulse Resp BP Pulse Ox O2 Del Method 98.7 F 108 H 18 129/71 96 Room Air 05/08/24 14:41 05/08/24 14:41 05/08/24 14:41 05/08/24 14:41 05/08/24 14:41 05/08/24 14:41 I & O for Last 24 hours: Intake & Output 05/05/24 05/06/24 05/07/24 05/08/24 23:59 23:59 23:59 23:59 Weight 196 lb Narrative: General: patient is alert oriented in no acute distress and responds appropriately to questions. HEENT: NCAT, EOMI, moist mucous membranes, neck supple with full ROM Cardiovascular: RRR +S1/S2, no murmurs or rubs Pulmonary: Clear to auscultation bilaterally, nonlabored breathing, symmetric chest rise Abdominal: Gravid abdomen appropriate for gestation. No guarding, rebound, or tenderness noted. SVE: On speculum exam dark old blood that was thick and clumpy likely from the progesterone noted. about a quarter amount. 1+/60/-3/soft. Extremities: trace edema, no tenderness or cyanosis noted Skin: Normal turgor, intact, warm. Negative for erythema, pallor, petechia, or lesions Neurologic: Negative for sensory or motor deficit Psychiatric: Normal affect, normal thought process, good judgment and insight, no depression or anxious mood appreciated. *Routine HEENT Exam Head: Present normocephalic and atraumatic Eye: Present EOMI, PERRL and normal accommodation; Absent conjunctival icterus, scleral injection, nystagmus or exophthalmos ENT: Present mucous membranes moist *Routine Respiratory Exam Respiratory: Present CTA bilaterally, normal respiratory effort, able to speak in complete sentences and symmetric chest movement; Absent accessory muscle use, decreased breath sounds, rales, respiratory distress, wheezes, distant breath sounds or diminished air movement *Routine Cardiovascular Exam Cardiovascular: Present RRR, Normal S1 and Normal S2; Absent murmur or gallop *Routine Abdominal Exam Abdominal: Present soft and normoactive bowel sounds; Absent tenderness, distended, rebound or guarding *Routine Rectal Exam Rectal:: deferred *Routine Genitalia Exam Genitalia:: normal female Assessment and Plan *Assessment and plan (1) Vaginal bleeding: Status: Acute Category: Medical Code(s): N93.9 - Abnormal uterine and vaginal bleeding, unspecified (2) Cervical shortening: Status: Acute Category: Medical Code(s): O26.879 - Cervical shortening, unspecified trimester (3) Placental abruption: Status: Acute Category: Medical Code(s): O45.90 - Premature separation of placenta, unspecified, unspecified trimester Plan #Possible abruption -Start magnesium and continue for 48 hours for neuroprotection -Betamethasone administered for lung maturity -Continuous monitoring of the tocometer for contractions, and of the heart rate tracing for any abnormalities -QBL started for vaginal bleeding -Update patient's type and cross in the case of delivery and hemorrhage. Most recent blood type: O+, antibody negative. -Updated hemoglobin from 05/01/2024: 12.5. -Collected GBS swab 24 to 48 hours after cervical exam -Previous US reviewed and abruption area of concern noted on the 22week scan as well. #Elevated 1 hour GTT -1 hour GTT was 159 -3-hour GTT, passed: 163/156/127
[2024-05-08 16:55] LABS: Basophils # 0.1 K/mm3 (0-0.2); Basophils % 0.7 % (0.1-2.0); Eosinophils # 0.3 K/mm3 (0.0-0.4); Eosinophils % 2.1 % (0.1-12.0); Hematocrit 35.4 % (37.0-47.0); Hemoglobin 12.5 g/dL (12.2-16.2); Lymphocytes # 2.9 K/mm3 (0.7-4.5); Lymphocytes % 21.2 % (10-50); Mean Corpuscular HGB Conc 35.3 g/dL (31.8-35.4); Mean Corpuscular Hemoglobin 29.6 pg (27.0-31.2); Mean Corpuscular Volume 83.7 fl (81-99); Monocytes % 6.9 % (1.7-9.3); Neutrophils # 9.1 K/mm3 (1.8-7.8); Neutrophils % 66.6 % (37.0-80.0); Platelet Count 335 K/mm3 (142-424); Red Blood Count 4.23 M/mm3 (4.20-5.40); Red Cell Distribution Width 13.4 % (11.5-17.5); White Blood Count 13.8 K/mm3 (4.8-10.8)
[2024-05-08 16:56] LABS: Magnesium 1.8 mg/dl (1.6-2.3)
[2024-05-08] MEDS: MAGNESIUM SULFATE IN WATER 4 GM/50 ML PIGGYBACK IV (17:00)
[2024-05-08] MEDS: LACTATED RINGERS 1000ML 1,000 ML 75 ML IV (17:03)
[2024-05-08] MEDS: BETAMETHASONE ACET/PHOS 6MG/ML 5ML MDV 12 MG IM (17:03)
[2024-05-08] MEDS: MAGNESIUM SULFATE IN WATER 20 GM/500 ML IV.SOLN IV (17:04)
[2024-05-08 19:32] VITALS: BP 122/70; PULSE 103; RESP 20; TEMP 36.9; O2SAT 97
[2024-05-08 21:57] LABS: Magnesium 4.2 mg/dl (1.6-2.3)
[2024-05-08 22:14] LABS: Microscopic, Urine URINE MICROSCOPIC (MICROSCOPIC)
[2024-05-08 22:17] LABS: Appearance,Urine CLEAR (Clear); Bilirubin,Urine Negative (Negative); Blood, Urine 3+ (Negative); Color,Urine YELLOW (Yellow); Glucose,Urine (UA) Negative (Negative); Ketones,Urine Negative (Negative); Leukocyte Esterase,Urine Negative (Negative); Nitrate,Urine Negative (Negative); Protein,Urine Negative (Negative); Urobilinogen,Urine 0.2 EU/dl (0.2)
[2024-05-08 22:30] LABS: Bacteria,Urine 2+ /lpf; WBC,Urine 20-50 #/hpf (0-3)
[2024-05-08 22:32] LABS: Barbiturates Screen,Urine Negative ng/ml (<200)
[2024-05-08 22:33] LABS: Amphetamine/Metha Screen,Urine Negative ng/ml (<1000); Benzodiazepines Screen,Urine Negative ng/ml (<200)
[2024-05-08 22:34] LABS: Cannabinoid Screen,Urine Negative ng/ml (<50)
[2024-05-08 22:35] LABS: Cocaine Screen,Urine Negative ng/ml (<300); Methadone Screen,Urine Negative ng/ml (<300)
[2024-05-08 22:36] LABS: Opiate Screen,Urine Negative ng/ml (<300); Phencyclidine Screen,Urine Negative ng/ml (<25)
[2024-05-09] VITALS (9 sets, daily range): BP systolic 103–161; BP diastolic 56–73; PULSE 97–106; RESP 16; TEMP 36.8; O2SAT 97–100
[2024-05-09] MEDS: MAGNESIUM SULFATE IN WATER 20 GM/500 ML IV.SOLN IV ×3 (03:15→22:03)
[2024-05-09] MEDS: ACETAMINOPHEN 500MG TAB 1000 MG PO ×3 (03:54→16:51)
--- NOTE | 2024-05-09 07:30 | P.CONPHA_ITS ---
Pharmacy Intervention Comments: MEDICATION RECONCILIATION COMPLETED ON PATIENT USING EXTERNAL FILL HISTORY FROM PHARMACY AND LIST FROM SALES OPERATIONS OFFICE. -DANY PATED
--- NOTE | 2024-05-09 07:30 | HMH.PHAINT1 ---
Pharmacy Intervention Comments: MEDICATION RECONCILIATION COMPLETED ON PATIENT USING EXTERNAL FILL HISTORY FROM PHARMACY AND LIST FROM [employer] OFFICE. -DANY PATED
[2024-05-09] MEDS: LACTATED RINGERS 1000ML 1,000 ML 75 ML IV ×2 (08:39→22:03)
--- NOTE | 2024-05-09 08:50 | P.PN_ITS ---
Subjective *Date: 05/09/24 *Time: 10:04 Interval history: Christa is doing well this morning sitting up in bed. She is ambulating to the bathroom without difficult and voiding. All voids are being measured inthe hat. She does report a headache and is requesting acetaminophen. Reports she gets frequent headaches and this is similar to what she typically experiences. She states last night she felt a few contractions they lasted 5-10 seconds and occured [id number]. she didnt notice them until RN pointed them out to her. she has not had any additional bleeding and reports goodfetal movement Exam Data for Last 24 hours Vital signs and Labs for Last 24 Hours: Temp Pulse Resp BP Pulse Ox O2 Del Method 98.5 F 103 H 20 122/70 97 Room Air 05/08/24 19:32 05/08/24 19:32 05/08/24 19:32 05/08/24 19:32 05/08/24 19:32 05/08/24 19:32 Laboratory Results - last 24 hr 05/08/24 16:36: WBC 13.8 H, RBC 4.23, Hgb 12.5, Hct 35.4 L, MCV 83.7, MCH 29.6, MCHC 35.3, RDW 13.4, Plt Count 335, MPV 9.0, Neut % (Auto) 66.6, Lymph % (Auto) 21.2, [place] % (Auto) 6.9, Eos % (Auto) 2.1, Baso % (Auto) 0.7, Neut # (Auto) 9.1 H, Lymph # (Auto) 2.9, [place] # (Auto) 1.0, Eos # (Auto) 0.3, Baso # (Auto) 0.1, Magnesium 1.8 05/08/24 21:14: Magnesium 4.2 H D 05/08/24 22:08: Urine Color Yellow, Urine Appearance Clear, Urine pH 7.0, Ur Specific [place] 1.020, Urine Protein Negative, Urine Glucose (UA) Negative, Urine Ketones Negative, Urine Blood 3+ A, Urine Nitrate Negative, Urine Bilirubin Negative, Urine Urobilinogen 0.2, Ur Leukocyte Esterase Negative, Urine RBC 5-10, Urine WBC 20-50, Ur Squamous Epith Cells 5-10, Urine Bacteria 2+, Urine Opiates Screen Negative, Urine Methadone Screen Negative, Ur Barbituates Screen Negative, Ur Phencyclidine Scrn Negative, Ur Amphetamines Screen Negative, U Benzodiazepines Scrn Negative, Urine Cocaine Screen Negative, U Marijuana (THC) Screen Negative 05/09/24 01:55: Blood Type O Positive, Antibody Screen Negative I & O for Last 24 hours: Intake & Output 05/06/24 05/07/24 05/08/24 05/09/24 23:59 23:59 23:59 23:59 Intake Total 676 / 676 1845 / 1845 Output Total 2125 / 2125 1050 / 1050 Balance -1449 / -1449 795 / 795 Weight 196 lb Narrative: General: patient is alert oriented in no acute distress and responds appropriately to questions. Cardiovascular: RRR +S1/S2, no murmurs or rubs Pulmonary: Clear to auscultation bilaterally, nonlabored breathing, symmetric chest rise. Clear lung adams, no signs of fluid overload or wheezing. Abdominal: Gravid abdomen appropriate for gestation. No guarding, rebound, or tenderness noted. Extremities: no edema, no tenderness or cyanosis noted Neurologic: Negative for sensory or motor deficit Psychiatric: Normal affect, normal thought process, good judgment and insight, no depression or anxious mood appreciated. Assessment and Plan *Assessment and plan (1) Placental abruption: Status: Acute Category: Medical Code(s): O45.90 - Premature separation of placenta, unspecified, unspecified trimester (2) Cervical shortening: Status: Acute Category: Medical Code(s): O26.879 - Cervical shortening, unspecified trimester (3) Vaginal bleeding: Status: Acute Category: Medical Code(s): N93.9 - Abnormal uterine and vaginal bleeding, unspecified (4) 29 weeks gestation of : Status: Acute Category: Medical Code(s): Z3A.29 - 29 weeks gestation of Plan #Vaginal bleeding -We will continue her vaginal progesterone tonight. Pt has to bring from home, not available from inpatient pharmacy. -Collect GBS tonight at 8-9PM prior to placing vaginal progesterone. -remain on pelvic rest -Mag level appropriate last night. Continue hourly checks on I&Os, vitals, Lungs and DTRs -Continue Magnesium x48 hours -complete steroids today -Continuous monitoring of the tocometer for contractions, and of the heart rate tracing for any abnormalities -QBL started for vaginal bleeding
[2024-05-09] MEDS: BETAMETHASONE ACET/PHOS 6MG/ML 5ML MDV 12 MG IM (17:26)
[2024-05-09] MEDS: PROGESTERONE 100 MG 200 MG VG (19:52)
[2024-05-10] MEDS: MAGNESIUM SULFATE IN WATER 20 GM/500 ML IV.SOLN IV (08:59)
[2024-05-10] MEDS: LACTATED RINGERS 1000ML 1,000 ML 75 ML IV (09:00)
--- NOTE | 2024-05-10 12:18 | EXP.DC.SUM ---
General Admission date:: 05/08/24 Discharge date: 05/10/24 HPI HPI HPI: Hyun Murillo is a 29-year-old at 29 weeks and 0 days gestation who presented to labor and delivery with vaginal bleeding. This has been complicated by a short cervix. States the vaginal bleeding has been on and off throughout the weekend. She has not had any bleeding today. States that it is dark brown mostly. It was bright red after placing her progesterone capsule. She uses vaginal progesterone for a shortened cervix noted on an earlier ultrasound. She denies any contractions and endorses good movement. Denies any leakage of fluid I called and discussed her case with [facility], maternal- medicine Dr. Melissa Cormier. We discussed the possibility of an abruption. Discussed that clinically she was very stable in the infant's heart rate tracing was very reassuring. Discussed expected management of abruption. Dr. Cormier graciously accepted the patient's transfer. The patient declined transfer at this time. Discussed that there was no NICU care available to her at [facility]. Discussed the transfer of the should she deliver at 29 weeks. Hospital Course Hospital Course Hospital Course: Hyun is a 29-year-old who was admitted to labor and delivery on 05/08/2024 at 29 weeks and 0 days gestation. She received 2 doses of Celestone for lung maturity. She received 2 days of IV magnesium for neuroprotection in the setting of a possible abruption. Patient had no additional contractions or vaginal bleeding. There were some irregular contractions on the night of 05/08 but nothing on the night of 05/09/2024. Prior to discharge magnesium was turned off and she was monitored for an additional 4 hours without contractions or vaginal bleeding. No cervical changes noted. Patient was noted to have a shortened cervix earlier in and she will continue vaginal progesterone at discharge Exam Data for Last 24 hours Vital signs and Labs for Last 24 Hours: Temp Pulse Resp BP Pulse Ox O2 Del Method 98.2 F 98 H 16 103/59 L 98 Room Air 05/09/24 16:46 05/09/24 16:46 05/09/24 16:46 05/09/24 16:46 05/09/24 16:46 05/09/24 16:46 I & O for Last 24 hours: Intake & Output 05/07/24 05/08/24 05/09/24 05/10/24 23:59 23:59 23:59 23:59 Intake Total 676 / 676 4868 / 4868 1908 / 1908 Output Total 2125 / 2125 5450 / 5450 2350 / 2350 Balance -1449 / -1449 -582 / -582 -442 / -442 Weight 196 lb Microbiology Reports for the Last 24 Hours: Microbiology 05/08/24 22:08 Urine,Clean Catch Urine Culture - Final No growth. Narrative: General: patient is alert oriented in no acute distress and responds appropriately to questions. Patient is up and walking around the room and doing well Cardiovascular: RRR +S1/S2, no murmurs or rubs Pulmonary: Clear to auscultation bilaterally, nonlabored breathing, symmetric chest rise. Clear lung adams, no signs of fluid overload or wheezing. Abdominal: Gravid abdomen appropriate for gestation. No guarding, rebound, or tenderness noted. Genitourinary: Very small/scant amount of dark brown blood at the introitus. SVE: 1+/60/-3/soft, no change. Tocometer reviewed and quiet without contractions Extremities: no edema, no tenderness or cyanosis noted Neurologic: Negative for sensory or motor deficit Psychiatric: Normal affect, normal thought process, good judgment and insight, no depression or anxious mood appreciated. DS: Diagnosis Discharge Diagnosis (1) Placental abruption: Status: Acute Code(s): O45.90 - Premature separation of placenta, unspecified, unspecified trimester (2) Cervical shortening: Status: Acute Code(s): O26.879 - Cervical shortening, unspecified trimester (3) Vaginal bleeding: Status: Acute Code(s): N93.9 - Abnormal uterine and vaginal bleeding, unspecified (4) 29 weeks gestation of : Status: Acute Code(s): Z3A.29 - 29 weeks gestation of Meds Home Medications and Allergies Home Medications ?Medication ?Instructions ?Recorded ?Confirmed ?Type acetaminophen 500 mg capsule 500 mg PO Q6HP PRN Mild Pain 02/17/24 05/09/24 History (Scale Score 1-4) vits no.126-ferrous fum 1 tab PO DAILY 02/17/24 05/09/24 History 28 mg iron-folic acid 800 mcg tablet (Classic ) progesterone micronized 100 mg 200 mg (2 x 100 mg) vaginal DAILY 04/04/24 05/09/24 Rx capsule (Prometrium) 30 days #60 caps New Prescriptions to Start Prescriptions: Allergies Allergy/AdvReac Type Severity Reaction Status Date / Time clindamycin Allergy Nausea Verified 05/03/24 14:00 benzol peroxide Allergy Mild Hives Uncoded 05/03/24 14:00 Discharge Plan Disposition Patient Disposition: Home, Self-Care Discharge Order Discharge Orders: Discharge Order (Routine); Ordered 05/10/24 Ordered By: Kaitlin Forrester Follow up Plan Follow up with: Kaitiln Forrester DO [Staff Physician] - Enter time for follow up Prescriptions/Medication Reconciliation: Continued Classic 28 mg iron- 800 mcg tablet 1 tab PO DAILY acetaminophen 500 mg capsule 500 mg PO Q6HP PRN (Reason: Mild Pain (Scale Score 1-4)) progesterone micronized [Prometrium] 100 mg capsule 200 mg vaginal DAILY 30 Days Qty: 60 2RF Rx Instructions: Please place two tablet vaginally each night until 36weeks gestation Problem Reconciliation Problems Reviewed?: Yes Patient Discharge Instructions ACTIVITY: Continue current activity DIET: regular diet Patient Instructions: Antepartum Care Print Language: Kinyarwanda Providers Primary Care Provider: Mulugeta Forrester Admit Provider: Kaitlin Forrester Attending Provider: Kaitlin Forrester
== END 2024-05-10 16:37 | disposition home or self-care (01) | DRG 832 ==
LOC: OBOUT 16:39 → OB 16:39
PROVIDERS: Admitting Provider Obstetrics & Gynecology; PCP Internal Medicine; Visit Provider Obstetrics & Gynecology
DX: O45.93 Premature separation of placenta, unspecified, third trimester (principal); O26.873 Cervical shortening, third trimester; Z3A.29 29 weeks gestation of pregnancy
CPT/HCPCS: 36415; 59025; 76816; 76817; 80307; 81001; 83735; 85025; 86403; 86850; 87086; 94761; G0283; J0702; J7120

== ENCOUNTER 2024-05-13 21:37 | Outpatient (CLI) | payer MEDICAID, SELFPAY ==
[2024-05-13 22:14] VITALS: BMI 33.6
[2024-05-13 22:17] VITALS: BP 110/66; PULSE 107; RESP 18; TEMP 37.1; O2SAT 96; BMI 33.6
[2024-05-13 22:19] LABS: Microscopic, Urine URINE MICROSCOPIC (MICROSCOPIC)
[2024-05-13 22:21] LABS: Appearance,Urine CLEAR (Clear); Bilirubin,Urine Negative (Negative); Blood, Urine 2+ (Negative); Color,Urine YELLOW (Yellow); Glucose,Urine (UA) Negative (Negative); Ketones,Urine Negative (Negative); Leukocyte Esterase,Urine Negative (Negative); Nitrate,Urine Negative (Negative); Protein,Urine Negative (Negative); Specific Gravity, Urine 1.015 (1.005-1.030); Urobilinogen,Urine 0.2 EU/dl (0.2)
[2024-05-13 22:34] LABS: Squamous Epithelial Cell,Urine Occasional #/hpf (0-5)
--- NOTE | 2024-05-14 00:35 | PC.NURSE ---
at 2355, pt requested to be discharged due to no interventions being done during observation and stated she would come back and be seen in the office. Dr. Forrester ccalled at 0000 to inform her of pts request, stated to cancel admit and d/c pt home to follow up in office this week and to educated pt on s/s to watch for to come back to L&D to be seen. order were verified and read back by this RN.
== END 2024-05-14 00:20 | disposition home or self-care (01) ==
LOC: OBOUT 21:39 → OB 21:40
PROVIDERS: PCP Internal Medicine; Visit Provider Obstetrics & Gynecology
DX: O26.853 Spotting complicating pregnancy, third trimester (principal); Z3A.29 29 weeks gestation of pregnancy
CPT/HCPCS: 81001; G0463

== ENCOUNTER 2024-06-07 07:16 | Observation (INO) | payer MEDICAID, SELFPAY ==
[2024-06-07 06:45] VITALS: BP 128/87; PULSE 109; RESP 18; TEMP 37.1; O2SAT 96; BMI 36.6
[2024-06-07 07:13] VITALS: BMI 33.7
[2024-06-07 07:22] LABS: Fetal Membrane Rupture (Rapid) Positive (Negative)
[2024-06-07] MEDS: SODIUM CHLORIDE 0.9% 10ML FLUSH SYRINGE 10 ML IV (07:33)
[2024-06-07] MEDS: AMPICILLIN SODIUM 2 GM in 0.9 % SODIUM CHLORIDE 100 ML IV (07:33)
[2024-06-07] MEDS: LACTATED RINGERS 1000ML 1,000 ML 999 ML IV (07:33)
--- NOTE | 2024-06-07 07:37 | P.HPDS_ITS ---
General Admission date:: 06/07/24 *Admission Date: 06/07/24 *Chief complaint: leakage of fluid *History of present illness: Hyun Murillo is a 29-year-old G1, P0 at 33 weeks and 2 days gestation based on last menstrual period which is consistent with 14-week ultrasound. She presented to labor and delivery today with ruptured membranes confirmed with AmniSure. complicated by cervical shorteninn-week ultrasound showed c ervical shortening of 2.8 cm, vaginal progesterone was started. She had vaginal bleeding with the progesterone and we alternated to every other day. Repeat ultrasound at 28 weeks gestation showed a cervical length of 3.22 cm Pt was admitted at 29 weeks gestation for vaginal bleeding and contractions. GBS collected on 05/09/24: negative. She was given a course of Betamethasone for lung maturity on 05/08/24 and 05/09/24. At that time there was a concern for abruption but that was ruled out. Contractions resolved as well as vaginal bleeding. [facility] Disclaimer: The information contained in this section may have been updated after the patient was seen, as this information can be updated by other users. Medical History History of gastroesophageal reflux (GERD) Migraine Normal endoscopy Surgical History Hx of wisdom tooth extraction Family History Other Family history of cancer Family history of myocardial infarction Social History Smoking Status: Never smoker alcohol intake: former substance use type: denies use current occupational status: unemployed Travel in the last 8 weeks: None Have you lived/traveled outside [place] in past 30 days?: No Contact w/someone who lives/traveled outside [place] past 30 days?: No Exposure to someone with infectious disease in past 14 days?: No Do you have a fever (greater than 100.4 F or 38 C)?: No Have you tested positive for COVID-19: No Exposed to someone with COVID-19 in past 14 days?: No Do you have a sore throat?: No Do you have a cough?: No Do you have any weakness?: No Do you have any diarrhea?: No Are you experiencing any unusual bleeding?: No Do you have any muscle aches/pain?: No Do you have any abdominal pain?: No Are you experiencing loss of taste or smell?: No Other Medical History Have you received the Flu Vaccine for this season: No Have you received the Pneumonia Vaccine: No Review of Systems Review of Systems Review of systems (narrative): Review of Systems Constitutional: Denies fever, chills, and sweats Respiratory: Denies cough and shortness of breath Cardiovascular: Denies chest pain and lightheadedness Gastrointestinal: Admits abdominal pain with contractions, rates contractions 3/10. Denies nausea, vomiting. Genitourinary: Denies dysuria and incontinence. Endorses leakage of fluid. Denies vaginal bleeding Musculoskeletal: Denies shoulder pain and back pain Neurological: Denies change in speech or headaches Exam Data for Last 24 hours Vital signs and Labs for Last 24 Hours: Laboratory Results - last 24 hr 06/07/24 07:10: Membrane Rupture Positive A I & O for Last 24 hours: Intake & Output 06/04/24 06/05/24 06/06/24 06/07/24 23:59 23:59 23:59 23:59 Weight 197 lb Narrative: General: patient is alert oriented in no acute distress and responds appropriately to questions. HEENT: NCAT, EOMI, moist mucous membranes, neck supple with full ROM Cardiovascular: RRR +S1/S2, no murmurs or rubs Pulmonary: Clear to auscultation bilaterally, nonlabored breathing, symmetric chest rise Abdominal: Gravid abdomen appropriate for gestation. No guarding, rebound, or tenderness noted. SVE: 2/80/-3/grossly ruptured. Vertex Extremities: trace edema, no tenderness or cyanosis noted Skin: Normal turgor, intact, warm. Negative for erythema, pallor, petechia, or lesions Neurologic: Negative for sensory or motor deficit Psychiatric: Normal affect, normal thought process, good judgment and insight, no depression or anxious mood appreciated. *Routine HEENT Exam Head: Present normocephalic and atraumatic Eye: Present EOMI, PERRL and normal accommodation; Absent conjunctival icterus, scleral injection, nystagmus or exophthalmos ENT: Present mucous membranes moist *Routine Respiratory Exam Respiratory: Present CTA bilaterally, normal respiratory effort, able to speak in complete sentences and symmetric chest movement; Absent accessory muscle use, decreased breath sounds, rales, respiratory distress, wheezes, distant breath sounds or diminished air movement *Routine Cardiovascular Exam Cardiovascular: Present RRR, Normal S1 and Normal S2; Absent murmur or gallop *Routine Abdominal Exam Abdominal: Present soft and normoactive bowel sounds; Absent tenderness, distended, rebound or guarding *Routine Rectal Exam Rectal:: deferred *Routine Genitalia Exam Genitalia:: normal female Meds Home Medications and Allergies Home Medications ?Medication ?Instructions ?Recorded ?Confirmed ?Type vits no.126-ferrous fum 1 tab PO DAILY 02/17/24 06/07/24 History 28 mg iron-folic acid 800 mcg tablet (Classic ) New Prescriptions to Start Prescriptions: Allergies Allergy/AdvReac Type Severity Reaction Status Date / Time clindamycin Allergy Nausea Verified 05/24/24 12:55 benzol peroxide Allergy Mild Hives Uncoded 05/24/24 12:55 Hospital Course Hospital Course Hospital Course: Christa presented to labor and was confirmed to have ruptured membranes. She elected to be transferred to [facility] for delivery. [facility] was called and report was given to Dr. Lina Sanches who graciously accepted patient transfer. Patient was started on magnesium, for transfer, and latency antibiotics. She was counseled on the delivery at 34 weeks gestation. The likelihood of a NICU stay was discussed with the patient Results Data Completed and Pending Labs on day of discharge: Labs from last 24 hours 06/07/24 06/07/24 07:30 07:10 Membrane Rupture Positive A Blood Type Pending Antibody Screen Pending DS: Diagnosis Discharge Diagnosis (1) 33 weeks gestation of : Status: Acute Code(s): Z3A.33 - 33 weeks gestation of (2) premature rupture of membranes (PPROM) delivered, current hospitalization: Status: Acute Code(s): O42.919 - premature rupture of membranes, unspecified as to length of time between rupture and onset of labor, unspecified trimester Problem details: -Magnesium was started to assist in transfer of the patient to tertiary care facility. -SVE: 2/80/-3/grossly ruptured. Vertex. - heart rate tracin/moderate variability/+accelerations/ no decelerations -[place]: q2-4 -latency antibiotics were initiated -GBS was unable to be completed as the patient had a cervical exam -Repeat course of betamethasone was offered to the patient. She was counseled on the benefits of decreased risk of TTN. She was counseled on the significant benefit if need of delivery. Pt is concerned for neuropsychiatriac development concerns (Autism) and at this time declines repeat dose. Pt reports partner and self both have neuropsych disorders and she doesnt want to expose her child. Discussed Ms recommendations at length. Reviewed Uptodate guidelines with the patient. Discharge Plan Disposition Patient Disposition: Xfer Short-Term Hosp Discharge Order Discharge Orders: Discharge Order (Routine); Ordered 06/07/24 Ordered By: Kaitlin Forrester Follow up Plan Follow up with: Kaitlin Forrester DO [Staff Physician] - 2 weeks Prescriptions/Medication Reconciliation: Continued Classic 28 mg iron- 800 mcg tablet 1 tab PO DAILY Discontinued progesterone micronized [Prometrium] 100 mg capsule 200 mg vaginal DAILY 30 Days Qty: 60 2RF Rx Instructions: Please place two tablet vaginally each night until 36weeks gestation Problem Reconciliation Problems Reviewed?: Yes Patient Discharge Instructions ACTIVITY: Limited activity Stand Alone Forms: Transfer Record Print Language: Citizen Of [place] Providers Primary Care Provider: Mulugeta Forrester Admit Provider: Kaitlin Forrester Attending Provider: Kaitlin Forrester
[2024-06-07 07:46] LABS: Basophils # 0.1 K/mm3 (0-0.2); Basophils % 0.6 % (0.1-2.0); Eosinophils # 0.3 K/mm3 (0.0-0.4); Eosinophils % 1.9 % (0.1-12.0); Hemoglobin 12.3 g/dL (12.2-16.2); Lymphocytes # 3.7 K/mm3 (0.7-4.5); Lymphocytes % 27.2 % (10-50); Mean Corpuscular HGB Conc 35.1 g/dL (31.8-35.4); Mean Corpuscular Hemoglobin 29.2 pg (27.0-31.2); Mean Corpuscular Volume 83.1 fl (81-99); Neutrophils # 8.3 K/mm3 (1.8-7.8); Neutrophils % 61.7 % (37.0-80.0); Platelet Count 325 K/mm3 (142-424); Red Blood Count 4.21 M/mm3 (4.20-5.40); Red Cell Distribution Width 13.2 % (11.5-17.5); White Blood Count 13.5 K/mm3 (4.8-10.8)
[2024-06-07] MEDS: AZITHROMYCIN 250 MG in 0.9 % SODIUM CHLORIDE 250 ML IV (08:03)
[2024-06-07] MEDS: LIDOCAINE/PRILOCAINE 5GM TUBE 5 GM TP (08:10)
[2024-06-07 08:13] VITALS: BP 151/100; PULSE 105; RESP 18; O2SAT 95
[2024-06-07] MEDS: MAGNESIUM SULFATE IN WATER 4 GM/50 ML PIGGYBACK IV (08:13)
--- NOTE | 2024-06-07 08:17 | PC.NURSE ---
Active Medications Generic Name Dose Route Start Last Admin Trade Name Ervinq PRN Reason Stop Dose Admin Ampicillin Sodium 2 gm/ Sodium 100 mls @ 200 mls/hr 06/07/24 07:30 06/07/24 07:33 Chloride IV 06/17/24 07:29 200 mls/hr Q4H [place] Administration Azithromycin 250 mg/ Sodium 250 mls @ 250 mls/hr 06/07/24 07:45 06/07/24 08:03 Chloride IV 06/07/24 08:44 250 mls/hr ONCE ONE Administration Lactated Ringer's 1,000 mls @ 999 mls/hr 06/07/24 07:45 06/07/24 07:33 Lactated Ringer's 1000 Ml Bag IV 06/07/24 08:45 999 mls/hr .Q1H1M ONE Administration Magnesium Sulfate 4 gm in 50 mls @ 150 mls/hr 06/07/24 08:15 06/07/24 08:13 Magnesium Sulfate 4gm/50ml Premix IV 06/07/24 08:34 150 mls/hr ONCE ONE Administration Magnesium Sulfate 20 gm in 500 mls @ 50 mls/hr 06/07/24 08:15 Magnesium Sulfate 20gm/500ml Premix (Ob Only) IV 07/07/24 08:14 .Q10H [place] 2 GM/HR Sodium Chloride 10 ml 06/07/24 07:15 06/07/24 07:33 Sodium Chloride 0.9% 10ml Flush Syringe IV 07/07/24 07:14 10 ml NEEDED PRN Administration Maintain IV Site
[2024-06-07 08:18] VITALS: BP 130/71; PULSE 104; RESP 18; O2SAT 95
[2024-06-07 08:23] VITALS: BP 129/78; PULSE 116; RESP 16; O2SAT 96
[2024-06-07 08:25] LABS: Microscopic, Urine URINE MICROSCOPIC (MICROSCOPIC)
[2024-06-07 08:27] LABS: Appearance,Urine CLEAR (Clear); Bilirubin,Urine Negative (Negative); Blood, Urine TRACE-I (Negative); Color,Urine YELLOW (Yellow); Glucose,Urine (UA) Negative (Negative); Ketones,Urine Negative (Negative); Leukocyte Esterase,Urine Negative (Negative); Nitrate,Urine Negative (Negative); Protein,Urine Negative (Negative); Urobilinogen,Urine 0.2 EU/dl (0.2)
[2024-06-07 08:28] VITALS: BP 140/77; PULSE 117; RESP 16; O2SAT 97
[2024-06-07 08:33] VITALS: BP 128/69; PULSE 107; RESP 12
[2024-06-07] MEDS: MAGNESIUM SULFATE IN WATER 20 GM/500 ML IV.SOLN IV (08:33)
[2024-06-07 08:39] LABS: Alanine Aminotransferase 21 U/L (12-78); Albumin Level 3.5 g/dl (3.5-5.0); Albumin/Globulin Ratio 1.5 (1.1-1.8); Alkaline Phosphatase 103 U/L (38-126); Anion Gap 14.9 mEq/L (5-15); Aspartate Amino Transferase 26 U/L (14-36); Bilirubin,Total 0.3 mg/dl (0.2-1.3); Blood Urea Nitrogen 6 mg/dl (7-17); Calcium 9.4 mg/dl (8.4-10.2); Carbon Dioxide 19 mmol/L (22.0-30.0); Chloride 106 mmol/L (98-107); Creatinine Clearance Estimated 290 mL/min (50-200); Estimated Glomerular Filt Rate 187 ml/min (>60); GFR (African American) 227 ML/MIN (>60); Globulin 2.4 g/dL (1.3-3.2); Glucose 92 mg/dl (74-100); Potassium 3.9 mmoL/L (3.5-5.1); Sodium 136 mmol/L (136-145); Total Protein,Serum 5.9 g/dl (6.3-8.2)
[2024-06-07 08:41] LABS: Benzodiazepines Screen,Urine Negative ng/ml (<200)
[2024-06-07 08:42] LABS: Amphetamine/Metha Screen,Urine Negative ng/ml (<1000); Bacteria,Urine Trace /lpf; Barbiturates Screen,Urine Negative ng/ml (<200); RBC,Urine Occasional #/hpf (0-3); Squamous Epithelial Cell,Urine Occasional #/hpf (0-5)
[2024-06-07 08:43] LABS: Cannabinoid Screen,Urine Negative ng/ml (<50)
[2024-06-07 08:44] LABS: Cocaine Screen,Urine Negative ng/ml (<300); Methadone Screen,Urine Negative ng/ml (<300)
[2024-06-07 08:45] LABS: Opiate Screen,Urine Negative ng/ml (<300); Phencyclidine Screen,Urine Negative ng/ml (<25)
[2024-06-07 19:18] LABS: RPR W/RFX Titers Nonreactive (Nonreactive)
== END 2024-06-07 09:59 | disposition short-term general hospital (02) ==
LOC: OBOUT 07:16 → OB 07:17
PROVIDERS: Nurse Practitioner Obstetrics & Gynecology; Admitting Provider Obstetrics & Gynecology; PCP Internal Medicine; Visit Provider Obstetrics & Gynecology
DX: O42.913 Preterm premature rupture of membranes, unspecified as to length of time between rupture and onset of labor, third trimester (principal); Z3A.33 33 weeks gestation of pregnancy
CPT/HCPCS: 36415; 80053; 80307; 81001; 84112; 85025; 86592; 86850; G0378; G0463; J0290; J0456; J7120